=== PATIENT | male | born 1965 | race Caucasian/White ===

== ENCOUNTER 2019-05-09 02:33 | Inpatient (IN) | payer OTHER ==
[~2019-05-09] VITALS: Ht 188 cm; Wt 97.0 kg
[2019-05-09 02:35] VITALS: Ht 188 cm; Wt 97.0 kg
--- NOTE | 2019-05-09 02:38 | NUR ---
PT BROUGHT TO ED BY [facility] WITH C/O ALOC. 911 WAS CALLED BY PT ROOMMATE FOR ALOC X1 HR [facility]. PT WAS FOUND LAYING SUPINE IN BED WITH A METH PIPE NEXT TO HIM. PER MEDICS, PT WAS GIVEN A XANAX BY HIS ROOMMATE. PER MEDICS, PT HAD A GCS OF 14 ON SCENE AND WAS CONFUSED AND VERY DROWSY. PT HAD TO BE REORIENTED FREQUENTLY. PT SOMNOLENT AT THIS TIME AND HAS TO BE WOKEN FREQUENTLY. PT STATES TO METH USE AND ETOH USE THIS EVENING. PT PLACED ON FULL CM AT THIS TIME, HR 104. WHEN PT FALLS ASLEEP, O2 SAT NOTED TO DROP TO THE LOW 90'S. PT NOTED WITH ABDOMINAL RETRACTIONS AND PT COMPLAINING OF DIFFICULTY BREATHING. LUNG SOUNDS CLEAR BILATERALLY. DR LUNDY AT BEDSIDE FOR MSE.
--- NOTE | 2019-05-09 02:40 | NUR ---
PT BECAME VERBALLY AGGRESSIVE WITH DR LUNDY DURING ASSESSMENT. PT YELLING AND CUSSING AT DR LUNDY. EMT AT BEDSIDE FOR SAFETY.
--- NOTE | 2019-05-09 02:53 | NUR ---
XRAY AND RT AT BEDSIDE.
[2019-05-09 03:04] LABS: BASOPHIL % 1.4 % (0-2); PLATELET COUNT 275 x10^3mcL (130-400)
[2019-05-09 03:06] LABS: RED CELL DISTRIBUTION WIDTH 14.7 % (11.5-14.5)
--- NOTE | 2019-05-09 03:08 | NUR ---
PT O2 SAT NOTED TO DROP TO 88% WHILE SLEEPING. PT PLACED ON 2L O2 VIA NASAL CANNULA AT THIS TIME. O2 SAT CURRENTLY 98%.
--- NOTE | 2019-05-09 03:15 | NUR ---
PT NOTED TO EXPERIENCE PERIODS OF APNEA WHILE SLEEPING, DR LUNDY AWARE. PT REMAINS ON FULL CM.
[2019-05-09 03:59] LABS: CALCIUM 8.6 mg/dL (8.5-10.1); CARBON DIOXIDE 25.1 mmol/L (21-32); CHLORIDE SERUM 107 mmol/L (98-107); CREATININE SERUM 1.1 mg/dL (0.7-1.3); GFR1 > 60 mL/min; GLUCOSE SERUM 99 mg/dL (74-106); POTASSIUM SERUM 4.3 mmol/L (3.5-5.1); SODIUM SERUM 142 mmol/L (136-145)
[2019-05-09 04:03] LABS: ALKALINE PHOSPHATASE 65 U/L (46-116); ALT/SGPT 44 U/L (16-63); AST/SGOT 29 U/L (15-37); LIPASE 84 IU/L (73-393); TOTAL PROTEIN, SERUM 6.4 g/dL (6.4-8.2)
--- NOTE | 2019-05-09 04:08 | NUR ---
RT AT BEDSIDE FOR ABG DRAW.
--- NOTE | 2019-05-09 04:25 | NUR ---
PT REMAINS AGITATED AT THIS TIME, CONTINUES TO MOVE AROUND AND TAKE OF MONITORING EQUIPMENT. DR LUNDY AWARE.
--- NOTE | 2019-05-09 04:47 | NUR ---
PT RESTING COMFORTABLY AT THIS TIME. PT REMAINS ON FULL CM AND IN VIEW OF NURSE'S STATION. VITAL SIGNS STABLE.
--- NOTE | 2019-05-09 05:18 | NUR ---
ATTEMPTED TO CALL KELLY BELLA TO GIVE PT REPORT, KELLY NOT AVAILABLE AT THIS TIME.
--- NOTE | 2019-05-09 05:25 | NUR ---
PT REPORT CALLED TO KELLY BELLA TO ASSUME PT CARE.
--- NOTE | 2019-05-09 05:30 | NUR ---
RECEIVED PT FROM ED VIA [facility]. ACCOMPANIED BY ED NURSE. KEPT COMFORTABLE IN BED. LETHARGIC, HX OF METH USE. UNABLE TO TO OBTAIN INFO. SPEECH SLURRED. AFEBRILE AND VITAL SIGNS STABLE. PLACED ON TELE 9, ST /SR ON THE MONITOR. RESP. EVEN, LABORED, WITH PERIODS OF SOB.02 AT 3L/MIN VIA NC. HOB ELEVATED. HL TO LT FOREARM, INTACT AND PATENT. AFEBRILE AND VITAL SIGNS STABLE.SKIN WARM AND DRY. NO EDEMA NOTED. ABD, SOFT, NON DISTENDED. BS ACTIVE. NO N/V NOTED. ORIENTED TO ROOM AND SURROUNDINGS. BED IN LOW POSITION. CALL LIGHT WITHIN REACH. WILL CONTINUE TO MONITOR.
--- NOTE | 2019-05-09 05:47 | NUR ---
PT TRANSFERRED TO 253B BY [facility] BY MYSELF AND [facility] EMT. PT ON CM FOR TRANSPORT. PT ACCEPTED BY KELLY BELLA TO ASSUME PT CARE. PT RESTING WITH EYES CLOSED AT THIS TIME, RESP EVEN AND UNLABORED, NO ACUTE DISTRESS NOTED. PT MOVED FROM [facility] TO BED WITHOUT INCIDENT.
[2019-05-09 05:52] LABS: MAGNESIUM 2.1 mg/dL (1.8-2.4)
[2019-05-09 05:58] VITALS: BP 129/92
[2019-05-09 06:02] LABS: T3 TOTAL 1.25 ng/mL
[2019-05-09 06:07] LABS: FREE T4 1.09 ng/dL (0.76-1.46); FREE THYROXINE INDEX 2.7 ug/dL (1.4-4.5); T4(THYROXINE) 7.4 ug/dL (4.7-13.3)
--- NOTE | 2019-05-09 06:55 | NUR ---
PT AWAKE AND VERY AGITATED, NOT FOLLOWING COMMANDS , COMBATIVE, ATIVAN GIVEN ORDERED. WILL ENDORSE TO INCOMING NURSE.
--- NOTE | 2019-05-09 08:55 | NUR ---
PATIENT AGITATED AND RESTLESS, NOT COOPERATIVE. IV PULLED. HUNCHING OVER THE BED, BREATHING LABORED AND CYANOTIC. RT CALLED AND DR MORRISON AT BEDSIDE. NONREBREATHER MASK 15L FIO2 [address], O2 SAT 98%. PER DR, GIVE 2MG IM ATIVAN ONE TIME. WASTED/NOT GIVEN, PATIENT BECAME CALM/LETHARGIC WITH HOB ELEVATED. IV PLACED TO RFA 22G FLUSHED. PATIENT WAS STILL LABORED BREATHING, ABG'S ORDERED. RT ATTEMPTED TO OBTAIN BUT PATIENT COMBATIVE. ATIVAN 1MG IV PRN GIVEN PER DR MORRISON. WILL CONT TO MONITOR.
[2019-05-09 09:02] VITALS: BP 131/92
[2019-05-09 10:35] VITALS: BP 131/92
--- NOTE | 2019-05-09 10:50 | NUR ---
PATIENT CONTINUED TO HAVE LABORED BREATHING AND EPISODES OF AGITATION/RESTLESSNESS/COMBATIVE, ABG OBTAINED W/ RESISTANCE, CYANOTIC TO THE FACE WHEN TRYING TO RESIST CARE AND HUNCHES OVER BED. O2 SAT 100% ON NONREBREATHER, NO AUDIBLE WHEEZING. ANOTHER 1MG ATIVAN IV DOSE GIVEN PER DR DURAN. DR BLUE AT BEDSIDE, TRANSFER PATIENT TO ICU. ICU MADE AWARE AND REPORT GIVEN TO MARIA ESTHER MRI SUPERVISOR. PATIENT LEAVING UNIT VIA [facility] ACCOMPANIED BY CHARGE NURSE NELY.
[2019-05-09 11:00] VITALS: BP 105/75
--- NOTE | 2019-05-09 11:00 | NUR ---
RC'D PT FROM ROOM 253 VIA BED WITH MANAGER CONVENTION PRESENT AT BEDSIDE. PT SLEEPING AT THIS TIME WITH NO APPARENT SIGNS OF DISTRESS. PUPILS 3MM AND BRISK BILAT. RESPIRATIONS EQUAL AND UNLABORED. ON 4L O2 VIA NC, SPO2 92%, MOUTHBREATHER, NO RESP DISTRESS NOTED. NSR ON FEED MANAGEMENT ADVISOR. NO S/S OF CP. PALP PULSES, NO EDEMA NOTED. SKIN WARM TO TOUCH. IV NOTED TO RFA, SECURED AND INTACT. ABDOMEN OBESE AND ROUND. NO BM NOTED AT THIS TIME. URINAL PRESENT AT BEDSIDE. LEFT FOOT 2ND TOE AMUPUTATION NOTED, VEENA. SMALL SCAB NOTED TO VEENA GALLARDO. GENERALIZED SCRATCHES NOTED TO VEENA VILLAGOMEZ. PT SLEEPING AT THIS TIME. BED IN LOWEST POSITION. WILL CONT TO MONITOR
--- NOTE | 2019-05-09 11:32 | NUR ---
DR ARGUETA PRESENT AT BEDSIDE. UPDATED ON PT STATUS. ALL QUESTIONS AND CONCERNS ADDRESSED. AWAITING NEW ORDERS AT THIS TIME.
--- NOTE | 2019-05-09 12:45 | NUR ---
PATIENT WOKE UP MUMBLING "I NEED TO GO TO THE BATHROOM." PATIENT NEEDED ASSISTANCE WITH URINAL. URINE OUTPUT 250 ML OF YELLOW COLORED URINE. SPECIMEN OBTAINED AND SENT TO LAB.
[2019-05-09 12:49] LABS: microscopic required? NO
--- NOTE | 2019-05-09 12:56 | NUR ---
PT TRYING TO GET OUT OF BED, RESTLESS AT THIS TIME. ATIVAN IVP 1MG GIVEN PER MD ORDER, VITALS STABLE. US TECH PRESENT AT BEDSIDE. WILL CONT TO MONITOR
[2019-05-09 13:12] LABS: urine erythrocyte NEGATIVE (NEGATIVE)
[2019-05-09 13:23] LABS: AMPHETAMINE QUAL UR POSITIVE (See below)
--- NOTE | 2019-05-09 13:32 | NUR ---
DR TERRY AT BEDSIDE SPEAKING WITH PATIENT'S MOTHER ENDER. PATIENT UPDATE PROVIDED AND POC DISCUSSED. ALL QUESTIONS AND CONCERNS ADDRESSED.
[2019-05-09 15:29] VITALS: BP 130/77
--- NOTE | 2019-05-09 15:55 | NUR ---
PT RESTLESS AND AGITATED AT THIS TIME. ATIVAN 1MG IVP GIVEN AT THIS TIME. WILL CONT TO MONITOR
--- NOTE | 2019-05-09 18:26 | NUR ---
DR PICKARD PRESENT AT BEDSIDE DISCUSSING POC. NO NEW ORDERS AT THIS TIME
--- NOTE | 2019-05-09 19:11 | NUR ---
RECIEVED REPORT FROM JENA MAYO. NURSING UPDATES. POC DISCUSSED. SEE SHIFT UPDATE ASSESSMENT FOR ASSESSMENT.
[2019-05-09 19:17] VITALS: BP 126/90
--- NOTE | 2019-05-09 20:11 | NUR ---
FRIENDS W/ UPDATE @ BEDSIDE FOR QUICK HELLO. NURSING UPDATES. PT RESTING CALMLY IN BED.
--- NOTE | 2019-05-09 21:17 | NUR ---
PT W/ AGITATION. ATTEMPTED CALMING MEASURES W/ NO RESPONSE. ADM PRN ATIVAN PER PT AGITATION. PT TOLERATED WELL. PT RESTING CALMLY IN BED.
--- NOTE | 2019-05-09 21:36 | NUR ---
FAMILY @ BEDSIDE. NURSING UPDATES. CODE WORD "DOT" ESTABLISHED FOR PT REPORTS FOR MEDICAL INFORMATION OVER THE PHONE. PT RESTING CALMLY IN BED. WILL CONT TO MONITOR.
[2019-05-10] VITALS: BP 99/64
--- NOTE | 2019-05-10 01:21 | NUR ---
PT RESTING CALMLY IN BED. NO ACUTE CHANGES. WILL CONT TO MONITOR.
--- NOTE | 2019-05-10 01:33 | NUR ---
PT FRIENDS BG BOONE [phone] W/ STATED FOR UPDATES IF QUICK INTERVENTION NEEDED. PT FRIEND TEGAN CUADRA [phone] ALSO NOTED IF UNABLE TO TALK TO MOTHER.
--- NOTE | 2019-05-10 02:03 | NUR ---
PT W/ AGITATION. CALMING MEASURES IN PLACE W/ NO RESULT. ADM PRN ATIVAN *(SEE MAR)*. PT CALM AND RESTING. WILL CONT TO MONITOR.
--- NOTE | 2019-05-10 02:29 | NUR ---
PT W/ AGITATION/AGGREVATION. CALMING MEASURES IN PLACE. PT PULLED OFF LEADS AND STATING NOT WANTING THEM AND TELLING EVERYONE TO BACK THE FUCK UP. CALMING MEASURES IN PLACE. PT RESPONDED WELL TO CALMING MEASURES. PT NOW RESTING CALMLY IN BED. WILL CONT TO MONITOR.
--- NOTE | 2019-05-10 03:17 | NUR ---
PT AGITATED AND PULLED OFF ALL LEADS AND O2 SAT STATING TO FUCK OFF AND THAT HE DOESN'T NEED THEM FOR EVERYONE TO BACK OFF. REPEATED IMPORTANCE OF MONITORING, PT STILL REFUSED. NO VITALS @ THIS TIME. PT RESTING CALMLY IN BED NO S/S OF DISTRESS.
--- NOTE | 2019-05-10 04:55 | NUR ---
HEADER SETUP OPERATOR @ BEDSIDE FOR AM LABS
[2019-05-10 05:05] LABS: BASOPHIL % 1.3 % (0-2); PLATELET COUNT 248 x10^3mcL (130-400)
[2019-05-10 05:07] LABS: RED CELL DISTRIBUTION WIDTH 14.6 % (11.5-14.5)
--- NOTE | 2019-05-10 05:23 | NUR ---
PT W/ AGITATION. CALMING MEASURES INTIIATED. PT STILL AGITATED. ADM PRN ATIVAN *(SEE MAR)*. PT RESTING CALMLY IN BED. ATTEMPTED TO PUT BACK ON BP CUFF AND O2 SAT. PT REFUSED BUT GOT READING BP 106/65(75) W/ O2 SAT 90%. WILL CONT TO MONITOR.
[2019-05-10 05:58] LABS: CALCIUM 8.4 mg/dL (8.5-10.1); CARBON DIOXIDE 25.9 mmol/L (21-32); CHLORIDE SERUM 108 mmol/L (98-107); CREATININE SERUM 0.9 mg/dL (0.7-1.3); GFR1 > 60 mL/min; GLUCOSE SERUM 140 mg/dL (74-106); MAGNESIUM 2.1 mg/dL (1.8-2.4); PHOSPHOROUS 3.7 mg/dL (2.5-4.9); POTASSIUM SERUM 4.4 mmol/L (3.5-5.1); SODIUM SERUM 142 mmol/L (136-145)
--- NOTE | 2019-05-10 06:22 | NUR ---
DR COOL @ BEDSIDE. NURSING UPDATES. POC DISCUSSED. AWAITING NEW ORDERS.
--- NOTE | 2019-05-10 07:31 | NUR ---
SPOKE W/ MOTHER ENDER. VERFIED PT ID PER BIRTHDATE. POC DISCUSSED. UPDATES GIVEN. MOTHER NOTED OF NEW PHONE NUMBER [phone].
--- NOTE | 2019-05-10 07:47 | NUR ---
RECEIVED PT'S REPORT FROM LEAVING NURSE. PT IS SLEEPING, EASILY AROUSED BY AUDITORY STIMULI. PT BREATHING ON O2 3L VIA NC, EVEN, MILD LABORED BREATHING NOTED. RFA IV SALINE LOCK AT THIS TIME.
[2019-05-10 08:25] VITALS: BP 114/79
--- NOTE | 2019-05-10 10:19 | NUR ---
PT WOKE UP, REORIENTED PT. PT COOPERATE WITH CARE AND STAYING ON BED AT THIS TIME. PT'S O2 SAT DESATING WHENEVER HE REMOVED NC. CLOSELY MONITOR.
--- NOTE | 2019-05-10 12:26 | NUR ---
PT REST ON BED WITH HIGH WHITING POSITION. PT'S MOM AT BED SIDE. PT BREATHING ON O2 3L VIA NC, MILD LABORED BREATHING NOTED. O2 SAT REMAINING 97%. PT VERBALLY COMMUNICATING WITH HIS MOM AT TIMES. WILL CONTINUE TO MONITOR.
[2019-05-10 13:35] VITALS: BP 108/79
--- NOTE | 2019-05-10 14:48 | NUR ---
PATIENT'S MOTHER AT BEDSIDE. PATIENT STATING HE IS UNABLE TO BREATH ALTHOUGH RR 18 AND SPO2 96% ON 2 L NASAL CANNULA. SPOKE WITH PATIENT REGARDING SOB VS ANXIETY AND PATIENT BECAME BELIGERENT AND STATED HE WAS GOING TO LEAVE. PATIENT EDUCATION PROVIDED REGARDING MEDICATIONS TO ELIMATE THE ANXIOUSNESS HE WAS FEELING AND PATIENT AGREED TO TAKING SOME ATIVAN. WILL MONITOR PATIENT CLOSELY.
--- NOTE | 2019-05-10 14:50 | NUR ---
PT SUDDENTLY GETTING RESTLESS, AND AGITATIVE. ATIVAN 1MG IVP GIVEN PER PRN ORDER. PT'S MOM AT BED SIDE. THEY ARE AWARE PT IS GOING TO TRANSFER TO [facility] UNIT. PT'S REPORT GIVEN TO [facility] NURSE WILLIAM. WILL GET PT READY FOR TRANSFER.
--- NOTE | 2019-05-10 15:30 | NUR ---
RECEIVED PATIENT FROM ICU VIA BED ACCOMPANIED BY RN ALINA. PATIENT DROWSY BUT ARROUSABLE AND RESPONSIVE TO VERBAL STIMULI. A/OX2, ABLE TO MAKE SOME NEEDS KNOWN AND FOLLOW SIMPLE COMMANDS. TELE 16, PER [employer] DRIVER READ AFIB TACHY 120'S POSSIBLY DURING TRANSFER, NOW READING SINUS TACH 116. PATIENT WITH NO ACUTE DISTRESS AT THIS TIME. VITALS TAKEN, STABLE ON 3L NC 98%, BREATHING EVEN AND SOMEWHAT LABORED. LUNGS DIMINISHED TO BASES. SKIN FLUSHED. DENIES CP. BOWEL SOUNDS ACTIVE, DENIES N/V. PERIPHERAL PULSES PALPABLE, NO EDEMA. CAP REFILL <3 SEC. LLE DRY SCAB NOTED VEENA, LEFT 2ND TOE AMP NOTED. IV ACCESS TO RFA SITE WNL. CALL LIGHT WITHIN REACH. SITTER AT BEDSIDE, FAMILY AT BEDSIDE. WILL CONT TO MONITOR.
[2019-05-10 15:35] VITALS: BP 129/93
--- NOTE | 2019-05-10 15:51 | NUR ---
PATIENT PULLED DOWN NASAL CANNULA, REPLACED AND EDUCATION REINFORCED ON NECESSITY OF KEEPING O2 SUPPORT IN PLACE. PATIENT PASSIVE AND GESTURED UNDERSTANDING, FAMILY VERBALIZED UNDERSTANDING.
--- NOTE | 2019-05-10 16:15 | NUR ---
PATIENT C/O HEART BURN AND FAMILY AT BEDSIDE INQUIRING IF OKAY TO BRING OUTSIDE FOOD FOR PATIENT. DR MORRISON MADE AWARE. PER DR, WILL ORDER OMEPRAZOLE, AND PATIENT UNABLE TO HAVE OUTSIDE FOOD AT THIS TIME. MADE AWARE OF AIC 6.7, INSULIN SET ORDERS PLACED. ALSO MADE HER AWARE OF PATIENT HAVING AN EPISODE OF AFIB PER PRODUCT ANALYST WHILE TRANSFERRING FROM ICU TO [facility]. NO NEW ORDER AT THIS TIME.
--- NOTE | 2019-05-10 19:30 | NUR ---
PT RECIEVED FROM DAY NURSE. PT RESTING IN BED COMFORTABLY AT THIS TIME. FAMILY AT BEDSIDE. PT A/OX2. FORGETFUL OF TIME AND PLACE. REORIENTED. TELE 19, SINUS TACH. DENIES CP, N/V, DIZZINESS, OR PALPATATIONS. PALPABLE PULSES, NO EDEMA NOTED. BREATHING SHALLOW/LABORED. ON 3L NC. O2 SAT 96%. ABD SOFT AND DISTENDED, DENIES PAIN TO PALPATION. RFA IV, CDI AND FLUSHING. BED AT LOWEST POSITON. CALL LIGHT WITHIN REACH. WILL CONTINUE TO MONITOR.
[2019-05-10 20:30] VITALS: BP 110/80
--- NOTE | 2019-05-10 21:20 | NUR ---
PT SHOWING SIGNS OF INCREASED AGITATION. MEDICATED WITH PRN ATIVAN. WILL CONTINUE TO MONITOR.
--- NOTE | 2019-05-11 | NUR ---
PT RESTING IN BED COMFORTABLY. NO S/S OF PAIN OR DISTRESS AT THIS TIME. BREATHING SHALLOW AND LABORED. ON 3L NC 93%. BED AT LOWEST POSITION. CALL LIGHT WITHIN REACH. WILL CONTINUE TO MONITOR.
--- NOTE | 2019-05-11 01:50 | NUR ---
PT SHOWING S/S OF AGITATION. MEDICATED WITH PRN ATIVAN. WILL CONTINUE TO MONITOR.
--- NOTE | 2019-05-11 06:04 | NUR ---
PT RESTING IN BED, COMFORTABLY AT THIS TIME. NO S/S OF PAIN NOTED. BREATHING SHALLOW AND LABORED ON 3L NC. NO SIGNS OF ACUTE DISTRESS AT THIS TIME. BED AT LOWEST POSITION. CALL LIGHT WITHIN REACH. WILL ENDORSE TO DAY NURSE.
[2019-05-11 06:13] VITALS: BP 115/87
--- NOTE | 2019-05-11 07:10 | NUR ---
ASSUMED CARE OF PATIENT. SEEN AWAKE AND ALERT THIS MORNING WITH PERIODS OF AGITATION. SITTER AT BEDSIDE. NO COMPLAINTS OF PAIN OR DISCOMFORT. NO APPARENT DISTRESS NOTED. IV REMAINS SALINE LOCKED. REMIANING ON 3L NC. WILL CONTINUE TO MONITOR.
[2019-05-11 07:28] LABS: CALCIUM 7.8 mg/dL (8.5-10.1); CARBON DIOXIDE 25.7 mmol/L (21-32); CHLORIDE SERUM 105 mmol/L (98-107); GFR1 > 60 mL/min; GLUCOSE SERUM 135 mg/dL (74-106); MAGNESIUM 2.2 mg/dL (1.8-2.4); PHOSPHOROUS 3.4 mg/dL (2.5-4.9); POTASSIUM SERUM 4.6 mmol/L (3.5-5.1); SODIUM SERUM 139 mmol/L (136-145)
[2019-05-11 07:46] LABS: PLATELET COUNT 265 x10^3mcL (130-400)
[2019-05-11 07:57] LABS: BASOPHIL % 0 % (0-2); RED CELL DISTRIBUTION WIDTH 15.1 % (11.5-14.5)
[2019-05-11 08:28] VITALS: BP 135/80
--- NOTE | 2019-05-11 09:03 | NUR ---
PATIENT SEEN SITTING IN ROOM WITH MILD DISTRESS AND DISCOMFORT. STATES HE "FEELS OKAY." REMAINING ON 3L O2 VIA NC, SATURATIONS AT 95%. SITTER REMAINS AT BEDSIDE.
--- NOTE | 2019-05-11 10:57 | NUR ---
PATIENT RESTING IN BED WITH EQUAL AND UNLABORED RESPIRATIONS. MOTHER AT BEDSIDE. UPDATED ON PLAN OF CARE.
[2019-05-11 12:26] VITALS: BP 123/83
--- NOTE | 2019-05-11 13:08 | NUR ---
PATIENT SEEN SLEEPING IN BED WITH EQUAL RESPIRATIONS. NO APPARENT DISTRESS NOTED. SITTER REMAINS AT BEDSIDE.
--- NOTE | 2019-05-11 15:14 | NUR ---
PER TELE: O2 SAT IN LOW 60'S. PATIENT APPEARS ASLEEP AND TO HAVE MILD LABORED RESPIRATIONS AND PRIMARILY MOUTH BREATHING. PATIENT EASILY AROUSABLE BUT LETHARGIC, INSTRUCTED TO BREATHE THROUGH NOSE, O2 INCREASED TO 5L. O2 PROBE CHANGED TO RIGHT INDEX FINGER. SATURATIONS NOW AT 95%.
[2019-05-11 16:38] VITALS: BP 114/78
--- NOTE | 2019-05-11 18:57 | NUR ---
PATIENT RESTING IN BED WITH MILD LABORED BREATHING. NO DISTRESS NOTED. NO COMPLAINTS OF PAIN. REMAINING ON 5L O2 VIA NC AT THIS TIME. WILL ENDORSE CARE TO ONCOMING RN.
--- NOTE | 2019-05-11 19:42 | NUR ---
PT RESTING IN BED COMFORTABLY. FRIEND AT BEDSIDE. PT A/O X 4. CALM AND COOPERATIVE AT THIS TIME. TELE 19, SINUS TACH. DENIES CP, N/V, DIZZINESS, AND PALPATATIONS. PALPABLE PUSLES, NO EDEMA NOTED. BREATHING E/U ON 3L NC. DENIES SOB. ABD SOFT AND ROUND, NO PAIN OR TENDERNESS TO PALPATATION. RFA IV, CDI. BED AT LOWEST POSITION. CALL LIGHT WITHIN REACH. WILL CONTINUE TO MONITOR.
[2019-05-11 20:33] VITALS: BP 97/60
--- NOTE | 2019-05-12 04:05 | NUR ---
PT RESTING IN BED COMFORTABLY AT THIS TIME. NO S/S OF PAIN OR DISCOMFORT NOTED AT THIS TIME. BREATHING E/U ON 3L NC. BED AT LOWEST POSITION. CALL LIGHT WITHIN REACH. WILL CONTINUE TO MONITOR.
[2019-05-12 05:53] VITALS: BP 113/70
[2019-05-12 06:25] LABS: CALCIUM 7.8 mg/dL (8.5-10.1); CARBON DIOXIDE 30.7 mmol/L (21-32); CHLORIDE SERUM 104 mmol/L (98-107); GFR1 > 60 mL/min; GLUCOSE SERUM 116 mg/dL (74-106); MAGNESIUM 2.2 mg/dL (1.8-2.4); PHOSPHOROUS 3.7 mg/dL (2.5-4.9); POTASSIUM SERUM 4.6 mmol/L (3.5-5.1); SODIUM SERUM 140 mmol/L (136-145)
[2019-05-12 06:41] LABS: PLATELET COUNT 261 x10^3mcL (130-400); RED CELL DISTRIBUTION WIDTH 14.4 % (11.5-14.5)
[2019-05-12 06:47] LABS: BASOPHIL % 0 % (0-2)
[2019-05-12 07:44] VITALS: BP 125/82
--- NOTE | 2019-05-12 07:45 | NUR ---
RECEIVED PT IN BED A/A/OX4 DENIES MILIAN. SLEEPY. RESP EVEN AND SLIGHTLY LABORED AT THIS TIME. WITH O2 TITRATED TO 3L/MIN VIA NC WITH O2 SAT 96%. ON RT PROTOCOL. ST ON TELE DENEIS ANY CP/PRESSURE AT THIS TIME. NO EDEMA NOTED WITH IV SL TO RH. ABD SOFT, NONTENDER, OBESE WITH ACTIVE BS X4. VOIDING FREELY. AMBULATORY. PT ABLE TO REPOSITION SELF IN BED. CALL LIGTH IN REACH NEEDS ATTENDED TO/
--- NOTE | 2019-05-12 11:00 | NUR ---
PT RESTING AT THIS TIME. DENIES ANY DISCOMFORT PULSE OX 96% ON 3L/MIN VIA NC. CALL LIGHT IN REACH NEEDS ATTENDED TO.
[2019-05-12 11:58] VITALS: BP 109/73
--- NOTE | 2019-05-12 15:00 | NUR ---
PT RESTING WITH EYES CLOSED. NO APPARENT DISTRESS.
--- NOTE | 2019-05-12 15:45 | NUR ---
DR. ARGUETA IN TO EVAL PT. MADE AWARE PT O2SAT DROP WHILE ASLEEP. MD DISCUSSED WITH PT HE NEEDS TO MAKE SURE HE F/U WITH PCP TO OBTAIN A SLEEP STUDY SINCE HE APPEARS TO BE HAVING SLEEP APNEA. PT VERBALIZED UNDERSTANDING. CALL LIGHT IN REACH NEEDS ATTENDED TO.
[2019-05-12 17:21] VITALS: BP 110/78
[2019-05-12 17:22] VITALS: BP 110/78
--- NOTE | 2019-05-12 18:26 | NUR ---
PT RESTING AT THIS TIME. DENIES ANY DISCOMFORT. REMAINS ON O2 AT 2L/MIN WITH O2 SAT 96%. RT HAS ATTEMPTED TO WEAN OFF O2 HOWEVER PT WILL DESAT TO LOW 90S ON 2L AND HAS TO BE PLACED BACK ON 3L OF AND ON THROUGHT THE SHIFT. FREQUENT VISUAL CHECKS FOR SAFETY. CALL LIGHT IN REACH NEEDS ATTENDED TO.
[2019-05-12 19:25] VITALS: BP 101/62
--- NOTE | 2019-05-12 20:00 | NUR ---
RECEIVED PT IN BED,RESTING QUIETLY, WITH SITTER AT THE BEDSIDE FOR SAFETY. ALERT AND ORIENTED. ABLE TO VERBALIZE NEEDS. DENIES HEADACHE/DIZZINESS. RESP. EVEN AND UNLABORED. 02 AT 3L/MIN VIA NC, SAT. 96% AT THIS TIME. DENIES SOB. NO ACUTE DISTRESS NOTED. AFEBRILE AND VITAL SIGNS STABLE. ST ON THE MONITOR, HR 102, DENIES CP OR ANY DISCOMFORT AT THIS TIME. HL TO RFA, INTACT AND PATENT. ABLE TO TURN AND REPOSITION SELF IN BED. CALL LIGHT WITHIN REACH. WILL CONTINUE TO MONITOR.
--- NOTE | 2019-05-13 00:32 | NUR ---
RESTING QUIETLY IN BED WITH EYES CLOSED, APPEARS ASLEEP, EASILY AROUSABLE. RESP. EVEN AND UNLABORED. [address], ANN MARIE. WELL. NO ACUTE DISTRESS NOTED. SITTER AT THE BEDSIDE FOR SAFETY. WILL CONTINUE TO MONITOR.
[2019-05-13 04:36] VITALS: BP 117/85
--- NOTE | 2019-05-13 06:08 | NUR ---
SLEPT WELL DURING THE NIGHT. NO AGITATION OR CONFUSION NOTED. CALM. CO-OPERATIVE WITH CARE. SITTER AT THE BEDSIDE FOR SAFETY. AFEBRILE AND VITAL SIGNS STABLE. RESP. EVEN AND UNLABORED. 02 AT 3L/MIN VIA NC, SAT. 96-98%. DENIES SOB. NO ACUTE DISTRESS NOTED. DUE MEDS GIVEN ORDERED, ANN MARIE. WELL.AMBULATES TO BATHROOM, VOIDING FREELY.NO COMPLAINTS NOTED .WILL CONTINUE TO MONITOR.
[2019-05-13 06:19] LABS: PLATELET COUNT 292 x10^3mcL (130-400)
[2019-05-13 06:37] LABS: BASOPHIL % 0 % (0-2); RED CELL DISTRIBUTION WIDTH 14.6 % (11.5-14.5)
[2019-05-13 07:02] LABS: CALCIUM 8.2 mg/dL (8.5-10.1); CARBON DIOXIDE 28.5 mmol/L (21-32); CHLORIDE SERUM 98 mmol/L (98-107); CREATININE SERUM 0.9 mg/dL (0.7-1.3); GFR1 > 60 mL/min; GLUCOSE SERUM 133 mg/dL (74-106); MAGNESIUM 2.2 mg/dL (1.8-2.4); PHOSPHOROUS 4.5 mg/dL (2.5-4.9); POTASSIUM SERUM 4.5 mmol/L (3.5-5.1); SODIUM SERUM 137 mmol/L (136-145)
[2019-05-13 09:00] VITALS: BP 116/86
[2019-05-13] MEDS ORDERED: PREDNISONE20 MG PO (10:33)
[2019-05-13] MEDS ORDERED: GOOD SENSE OMEP20 MG PO (10:34)
[2019-05-13] MEDS ORDERED: COR3 PO (10:34)
[2019-05-13] MEDS ORDERED: ZESTRIL5 MG PO (10:34)
[2019-05-13] MEDS ORDERED: LEVAQUIN750 MG PO (10:34)
--- NOTE | 2019-05-13 12:30 | NUR ---
PT RESTING COMFORTABLY AT THIS TIME. HAS BEEN ON RA SINCE HEAD SETTER SATTING BETWEEN 92-97%. PT AMBULATED IN HALLWAY AND SAT WERE MAINTAINED ABOVE 92%. PT WAS MADE AWARE EARLIER IN THE DAY OF D/C HOME PLAN AND PT AGREED WITH POC. PT STATES HIS MOTHER WILL COME PICK HIM UP AROUND 1-2 PM.
[2019-05-13 12:41] VITALS: BP 123/60
[2019-05-13 14:05] VITALS: BP 128/64
--- NOTE | 2019-05-13 14:45 | NUR ---
PT/FAMILY PROVIDED WITH D/C HOME INSTRUCTIONS. GIVEN MEDICATION/PRESCRIPTION EDUCATION. MADE AWARE OF NEED TO F/U WITH PCP WITH IN 2-3 DAYS. PT HAS SCHEDULED APPT ON 07/08/19. FAMILY STATED THEY WILL CALL TO TRY TO MOVE APPT UP SINCE THEY WANT TO FIND NEW PCP. PT/FAMILY VERBALIZED UNDERSTANDING OF INSTRUCTIONS. TELE AND IV D/C'D CATHETER INTACT. PT TRANSPORTED TO [facility] VIA WC WITH ALL PERSONAL BELONGINGS IN HAND FREE OF ANY APPARENT DISTRESS.
== END 2019-05-13 16:29 | disposition home or self-care (01) | DRG 812 ==
LOC: ED 02:33 → DU 04:49 → IC 04:49 → DU 05:42 → IC 10:55 → DU 05-10 15:28
PROVIDERS: Emergency Medicine; ADMIT Internal Medicine
DX: T43.621A Poisoning by amphetamines, accidental (unintentional), initial encounter (principal); J96.01 Acute respiratory failure with hypoxia; G92 Toxic encephalopathy; I50.23 Acute on chronic systolic (congestive) heart failure; E44.0 Moderate protein-calorie malnutrition; I42.7 Cardiomyopathy due to drug and external agent; J45.901 Unspecified asthma with (acute) exacerbation; K21.9 Gastro-esophageal reflux disease without esophagitis; F15.10 Other stimulant abuse, uncomplicated; F17.210 Nicotine dependence, cigarettes, uncomplicated; Y92.018 Other place in single-family (private) house as the place of occurrence of the external cause; I34.0 Nonrheumatic mitral (valve) insufficiency; Z68.28 Body mass index [BMI] 28.0-28.9, adult
CPT/HCPCS: 36600; 82962; 83880; 84439; G0378; G0480; J1630; J1940; J2060; J2920; J2930; J7620; Q0092